=== PATIENT | male | born 1970 | race Caucasian/White ===

== ENCOUNTER 2021-05-25 02:30 | Observation (INO) | payer OTHER ==
[2021-05-25] MEDS ORDERED: NA CHLORIDE 0.9% 1,000 ML ONE (03:07)
[2021-05-25] MEDS ORDERED: IBUPROFEN 400 MG TAB ONE (03:19)
[2021-05-25] MEDS ORDERED: ASPIRIN EC 81 MG TAB PO ONE (03:19)
[2021-05-25] MEDS ORDERED: CEFTRIAXONE 1000 MG/VIAL ONE (03:19)
[2021-05-25] MEDS ORDERED: AZITHROMYCIN 250 MG TAB ONE (03:20)
[2021-05-25 03:43] LABS: Absolute Lymphocytes (CBC) 0.5 K/uL (0.7-4.9); Basophils % 0.3 % (0-1.3); Lymphocytes % 6.1 % (15.3-44.8); MPV 7.1 fL (7.6-11.3); RBC Red Blood Cell Count 4.74 M/uL (4.33-5.43)
[2021-05-25] MEDS ORDERED: FAMOTIDINE 20 MG/2 ML VIAL IV ONE (03:54)
[2021-05-25 04:07] LABS: Protime INR 1.11
[2021-05-25 04:15] LABS: SARS-COV-2 RT PCR NEGATIVE (NEGATIVE)
[2021-05-25 04:31] LABS: Urine Blood Negative (Negative); Urine Glucose Negative (Negative); Urine Protein Negative (Negative); Urine Specific Gravity 1.015 (1.005-1.030); Urine pH 6.5 (5.0-7.0)
--- NOTE | 2021-05-25 04:40 | ER ---
Nurse's Notes [facility] Name: Payam Waterman Age: 51 yrs Sex: Male : 1970 Arrival Date: 05/25/2021 Time: 02:33 Bed 8 Private MD: Diagnosis: Fever, unspecified;Other malaise and fatigue;Dyspnea;Obesity, unspecified;Chest pain, unspecified;Bandemia;Pneumonia, unspecified organism-BILATERAL PNEUMONIA Presentation: 05/25 02:33 Chief complaint: Patient states: Pt woke up at 2300 in resp distress. Pt states he has wg been having chills, sweats and body aches all over. EMS stated temp was 101.3 and was given 1 gram of tylenol in the field. Pt was 94% in the field and diaphoretic. Coronavirus screen: Vaccine status: Patient reports being unvaccinated. Client presents with at least one sign or symptom that may indicate coronavirus-19. Standard/surgical mask placed on the client. Ebola Screen: Patient negative for fever greater than or equal to 101.5 degrees Fahrenheit, and additional compatible Ebola Virus Disease symptoms Patient denies exposure to infectious person. Patient denies travel to an Ebola-affected area in the 21 days before illness onset. Initial Sepsis Screen: Does the patient meet any 2 criteria? No. Patient's initial sepsis screen is negative. Does the patient have a suspected source of infection? No. Patient's initial sepsis screen is negative. Risk Assessment: Do you want to hurt yourself or someone else? Patient reports no desire to harm self or others. Onset of symptoms was May 24, 2021 at 23:00. Care prior to arrival: Medication(s) given: Tylenol, 1000 mg. 02:33 Method Of Arrival: EMS: [facility] wg :33 Acuity: RAYSA 3 wg Triage Assessment: 02:38 General: Appears uncomfortable, obese, well nourished, Behavior is cooperative, wg appropriate for age, anxious. Pain: Complains of pain in Generalized body ache. Historical: - Allergies: 02:38 No Known Allergies; wg - Home Meds: 02:38 omeprazole Oral [Active]; Ambien Oral [Active]; Voltaren Oral [Active]; wg - Immunization history:: Adult Immunizations up to date. - Social history:: Smoking status: . - Family history:: not pertinent. Screenin:42 Abuse screen: Denies threats or abuse. Nutritional screening: No deficits noted. cw2 Tuberculosis screening: No symptoms or risk factors identified. Fall Risk None identified. Vital Signs: 02:33 BP 142 / 98; Pulse 126; Resp 26; Temp 100.4; Pulse Ox 95% on R/A; Weight 163.75 kg; wg Height 5 ft. 11 in. (180.34 cm); Pain 5/10; 03:00 BP 132 / 88; Pulse 93; Resp 22; Temp 99.0; Pulse Ox 99% on R/A; Pain 0/10; cw2 02:33 Body Mass Index 50.35 (163.75 kg, 180.34 cm) ED Course: 02:33 Patient arrived in ED. mw2 02:37 Scot Juan MD is Attending Physician. imer 02:38 Triage completed. wg 02:38 Arm band placed on right wrist. wg 02:39 Andrez Dennis, [place] is Primary Nurse. cw2 02:40 Arm band placed on right wrist. Patient placed in an exam room, on a stretcher, on cw2 air sampling and monitoring, on pulse oximetry. 02:40 EKG done per protocol. Performed by ED Staff. Shown to ED physician. cw2 02:41 No provider procedures requiring assistance completed. Inserted saline lock: 20 gauge cw2 in right antecubital area, using aseptic technique. Blood collected. 02:41 First set of blood cultures drawn by ct, EKG done, COVID swab sent to lab. cw2 03:09 Flu Sent. cw2 03:16 Antipyretics given from triage as ordered by an ER provider. cw2 03:41 XRAY Chest (1 view) In Process Unspecified. EDMS 04:38 Karan Harper MD is Hospitalizing Provider. imer 04:58 US Extremity Venous W Compression Faraz In Process Unspecified. EDMS 06:30 CT Chest For PE Angio Sent. ch4 Administered Medications: 02:52 Drug: NS 0.9% 1000 ml Route: IV; Rate: 1 bolus; Site: right antecubital; cw2 03:08 Drug: Rocephin (cefTRIAXone) 1 grams Route: IV; Rate: per protocol; Site: right cw2 antecubital; 03:08 Drug: Pepcid (famotidine) 40 mg Route: IVP; Site: right antecubital; cw2 03:08 Drug: Aspirin Chewable Tablet 324 mg Route: PO; cw2 03:08 Drug: Motrin (ibuprofen) 800 mg Route: PO; cw2 03:09 Drug: Zithromax (azithromycin) 500 mg Route: PO; cw2 05:42 Drug: Lovenox (enoxaparin) 100 mg Route: Sub-Q; Site: left lower abdomen; cw2 Outcome: 04:17 Condition: good [facility] 04:40 Decision to Hospitalize by Provider. [facility] 17:49 Patient left the ED. Signatures: Dispatcher [employer] EDMS Scot Juan MD MD cha Smirch, Shelby, RN RN Chadd Espinoza [facility] Marquita Arizmendi, [place] JACINTO [facility] Chilango Farris RN Andrez Dennis RN RN cw2 Corrections: (The following items were deleted from the chart) 03:15 02:52 CORONAVIRUS+MR.LAB.LOBITO drawn and sent. [address]
--- NOTE | 2021-05-25 04:40 | EDPHYS ---
Physician Documentation [facility] Name: Payam Waterman Age: 51 yrs Sex: Male : 1970 Arrival Date: 05/25/2021 Time: 02:33 Bed 8 Private MD: ED Physician Scot Juan HPI: 05/25 02:51 This 51 yrs old Male presents to ER via EMS with complaints of sob , fever imer and pain all over. 02:51 The patient has shortness of breath at rest, with light activity. Onset: The imer symptoms/episode began/occurred this morning. Duration: The symptoms are continuous, and are steadily getting worse. The patient's shortness of breath is aggravated by coughing, is alleviated by nothing. The patient or guardian reports airway noise, cough, difficulty breathing, flu symptoms, arthralgias, low-grade fever, myalgias. Onset: The symptoms/episode began/occurred 1 day(s) ago. Modifying factors: The symptoms are alleviated by nothing. the symptoms are aggravated by nothing. Associated signs and symptoms: The patient has no apparent associated signs or symptoms. Severity of symptoms: At their worst the symptoms were mild moderate in the emergency department the symptoms are unchanged. Associated signs and symptoms: Pertinent positives: chest pain, fever, rhinorrhea, sore throat. Historical: - Allergies: 02:38 No Known Allergies; wg - Home Meds: 02:38 omeprazole Oral [Active]; Ambien Oral [Active]; Voltaren Oral [Active]; wg - Immunization history:: Adult Immunizations up to date. - Social history:: Smoking status: . - Family history:: not pertinent. ROS: 02:51 Eyes: Negative for injury, pain, redness, and discharge, ENT: Negative for injury, imer pain, and discharge, Neck: Negative for injury, pain, and swelling, Abdomen/GI: Negative for abdominal pain, nausea, vomiting, diarrhea, and constipation, Back: Negative for injury and pain, : Negative for injury, bleeding, discharge, and swelling, Skin: Negative for injury, rash, and discoloration, Neuro: Negative for headache, weakness, numbness, tingling, and seizure, Psych: Negative for depression, anxiety, suicide ideation, homicidal ideation, and hallucinations, Allergy/Immunology: Negative for hives, rash, and allergies, Endocrine: Negative for neck swelling, polydipsia, polyuria, polyphagia, and marked weight changes, Hematologic/Lymphatic: Negative for swollen nodes, abnormal bleeding, and unusual bruising. 02:51 Constitutional: Positive for fever. 02:51 Cardiovascular: Positive for chest pain, palpitations. 02:51 Respiratory: Positive for cough, shortness of breath, at rest. 02:51 MS/extremity: Positive for decreased range of motion, pain, of the right hand, left hand, right foot and left foot. Exam: 02:51 Constitutional: This is a well developed, well nourished patient who is awake, alert, imer and in no acute distress. Head/Face: Normocephalic, atraumatic. Eyes: Pupils equal round and reactive to light, extra-ocular motions intact. Lids and lashes normal. Conjunctiva and sclera are non-icteric and not injected. Cornea within normal limits. Periorbital areas with no swelling, redness, or edema. ENT: Nares patent. No nasal discharge, no septal abnormalities noted. Tympanic membranes are normal and external auditory canals are clear. Oropharynx with no redness, swelling, or masses, exudates, or evidence of obstruction, uvula midline. Mucous membranes moist. Neck: Trachea midline, no thyromegaly or masses palpated, and no cervical lymphadenopathy. Supple, full range of motion without nuchal rigidity, or vertebral point tenderness. No Meningismus. Chest/axilla: Normal chest wall appearance and motion. Nontender with no deformity. No lesions are appreciated. Cardiovascular: Regular rate and rhythm with a normal S1 and S2. No gallops, murmurs, or rubs. Normal PMI, no JVD. No pulse deficits. Respiratory: Lungs have equal breath sounds bilaterally, clear to auscultation and percussion. No rales, rhonchi or wheezes noted. No increased work of breathing, no retractions or nasal flaring. Abdomen/GI: Soft, non-tender, with normal bowel sounds. No distension or tympany. No guarding or rebound. No evidence of tenderness throughout. Back: No spinal tenderness. No costovertebral tenderness. Full range of motion. Skin: Warm, dry with normal turgor. Normal color with no rashes, no lesions, and no evidence of cellulitis. MS/ Extremity: Pulses equal, no cyanosis. Neurovascular intact. Full, normal range of motion. Neuro: Awake and alert, GCS 15, oriented to person, place, time, and situation. Cranial nerves II-XII grossly intact. Motor strength 5/5 in all extremities. Sensory grossly intact. Cerebellar exam normal. Normal gait. Psych: Awake, alert, with orientation to person, place and time. Behavior, mood, and affect are within normal limits. Vital Signs: 02:33 BP 142 / 98; Pulse 126; Resp 26; Temp 100.4; Pulse Ox 95% on R/A; Weight 163.75 kg; wg Height 5 ft. 11 in. (180.34 cm); Pain 5/10; 03:00 BP 132 / 88; Pulse 93; Resp 22; Temp 99.0; Pulse Ox 99% on R/A; Pain 0/10; cw2 02:33 Body Mass Index 50.35 (163.75 kg, 180.34 cm) wg MDM: 02:39 Patient medically screened. imer 02:55 Differential diagnosis: Anemia Anxiety Reaction Bronchitis CHF exacerbation, imer bronchitis, flu, URI, pneumonia. Antibiotic administration: Rocephin and Zithromax given. The patient's Wells Deep Vein Thrombosis Score was calculated as follows: Heart Rate >100 BPM (1.5 Pts) Total Score: 0-2 Pts- Low Risk. The patient's pulmonary embolism risk score was calculated as follows: the patients heart rate is greater than 100 beats per minute (1.5 Pts) Total Score: 0-2 points. This patient was found to be at low risk for a pulmonary embolism by using the Well's assessment criteria. Immunization status: Influenza vaccine: Data reviewed: vital signs, nurses notes, lab test result(s), EKG, radiologic studies, plain films. Data interpreted: property assessment monitor: rate is 126 beats/min, rhythm is regular, Pulse oximetry: on room air is 95 %. Test interpretation: by ED physician or midlevel provider: ECG, plain radiologic studies. Counseling: I had a detailed discussion with the patient and/or guardian regarding: the historical points, exam findings, and any diagnostic results supporting the discharge/admit diagnosis, lab results, radiology results. 05/25 02:41 Order name: BMP; Complete Time: 05:17 05/25 02:41 Order name: Blood Culture Adult (2) 05/25 02:41 Order name: CBC with Diff; Complete Time: 04:55 05/25 02:41 Order name: CPK; Complete Time: 05:17 05/25 02:41 Order name: Ckmb; Complete Time: 05:17 05/25 02:41 Order name: D-Dimer; Complete Time: 04:14 05/25 02:41 Order name: Hepatic Function; Complete Time: 05:17 05/25 02:41 Order name: Lipase; Complete Time: 05:17 05/25 02:41 Order name: Magnesium; Complete Time: 05:17 05/25 02:41 Order name: NT PRO-BNP; Complete Time: 05:17 05/25 02:41 Order name: PT-INR; Complete Time: 04:14 05/25 02:41 Order name: Ptt, Activated; Complete Time: 04:14 05/25 02:41 Order name: Troponin (emerg Dept Use Only); Complete Time: 05:17 05/25 02:51 Order name: Flu [facility] 05/25 02:48 Order name: XRAY Chest (1 view) [facility] 05/25 03:46 Order name: Manual Differential; Complete Time: 04:55 [facility] 05/25 04:11 Order name: US Extremity Venous W Compression Faraz [facility] 05/25 04:11 Order name: CT Chest For PE Angio [facility] 05/25 04:15 Order name: COVID-19/FLU A+B; Complete Time: 04:38 [facility] 05/25 04:31 Order name: Urine Dipstick-Ancillary; Complete Time: 04:38 [facility] 05/25 11:18 Order name: CT [facility] 05/25 15:44 Order name: Urine Dipstick-Ancillary [facility] 05/25 16:50 Order name: Troponin I [facility] 05/25 02:41 Order name: EKG; Complete Time: 02:41 05/25 02:41 Order name: Cardiac monitoring; Complete Time: 06:30 05/25 02:41 Order name: EKG - Nurse/Tech; Complete Time: 06:30 05/25 02:41 Order name: IV Saline Lock; Complete Time: 06:30 05/25 02:41 Order name: Labs collected and sent; Complete Time: 06:30 05/25 02:41 Order name: O2 Per Protocol; Complete Time: 06:30 wg 05/25 02:41 Order name: O2 Sat Monitoring; Complete Time: 06:30 wg 05/25 02:42 Order name: Urine Dipstick-Ancillary (obtain specimen); Complete Time: 06:30 wg Administered Medications: 02:52 Drug: NS 0.9% 1000 ml Route: IV; Rate: 1 bolus; Site: right antecubital; cw2 03:08 Drug: Rocephin (cefTRIAXone) 1 grams Route: IV; Rate: per protocol; Site: right cw2 antecubital; 03:08 Drug: Pepcid (famotidine) 40 mg Route: IVP; Site: right antecubital; cw2 03:08 Drug: Aspirin Chewable Tablet 324 mg Route: PO; cw2 03:08 Drug: Motrin (ibuprofen) 800 mg Route: PO; cw2 03:09 Drug: Zithromax (azithromycin) 500 mg Route: PO; cw2 05:42 Drug: Lovenox (enoxaparin) 100 mg Route: Sub-Q; Site: left lower abdomen; cw2 Disposition Summary: 05/25/21 04:40 Hospitalization Ordered Hospitalization Status: Observation imer Provider: Karan Harper cha Condition: Stable imer Problem: new imer Symptoms: have improved imer Bed/Room Type: Standard [facility] Location: [facility] ER HOLD(05/25/21 12:20) Room Assignment: ERHOLD-(05/25/21 12:20) ss Diagnosis - Fever, unspecified imer - Other malaise and fatigue imer - Dyspnea imer - Obesity, unspecified imer - Chest pain, unspecified imer - Bandemia imer - Pneumonia, unspecified organism - BILATERAL PNEUMONIA imer Forms: - Medication Reconciliation Form imer - SBAR form imer Signatures: Dispatcher [employer] EDMS Scot Juan MD MD cha Smirch, Shelby, RN RN ss Chilango Farris RN Andrez Dennis RN RN cw2 Corrections: (The following items were deleted from the chart) 03:15 02:51 Influenza Screen (A ordered. EDMS EDMS 03:15 02:51 CORONAVIRUS+MR.LAB.BRZ ordered. EDMS EDMS 12:20 04:40 Telemetry/MedSurg (observation) imer ss 12:20 04:40 imer ss
[2021-05-25] MEDS ORDERED: ENOXAPARIN 100 MG/ML SYR SQ ONE (04:45)
[2021-05-25 04:54] LABS: Blood Morphology Comment NOT SEEN (NOT SEEN); Platelet Estimate ADEQ
[2021-05-25 05:12] LABS: ALT/SGPT 40 U/L (12-78); Albumin 3.6 g/dL (3.4-5.0); Alkaline Phosphatase 113 U/L (45-117); BUN Blood Urea Nitrogen 20 mg/dL (7-18); Bicarbonate 27 mmol/L (21-32); Bilirubin Direct < 0.1 mg/dL (0-0.2); Bilirubin Total 0.4 mg/dL (0.2-1.0); Creatine Phosphokinase 102 U/L (39-308); Glucose Level 145 mg/dL (74-106); Lipase 86 U/L (73-393); NT PRO-BNP 176 pg/mL (<125); Protein, Total 6.6 g/dL (6.4-8.2); Sodium Level 141 mmol/L (136-145); Troponin (Emerg Dept Use Only) < 0.02 ng/mL (0.0-0.045)
[2021-05-25 05:13] LABS: AST/SGOT 33 U/L (15-37); CKMB Creatine Kinase MB < 1.0 ng/mL (1.0-3.6); Potassium 4.5 mmol/L (3.5-5.1)
--- NOTE | 2021-05-25 05:42 | P.HP ---
Certification for Inpatient Patient admitted to: Observation With expected LOS: <2 Midnights Patient will require the following post-hospital care: None Practitioner: I am a practitioner with admitting privileges, knowledge of patient current condition, hospital course, and medical plan of care. Services: Services provided to patient in accordance with Admission requirements found in Title 42 Section 412.3 of the Code of Federal Regulations <Mariano Juan - Last Filed: 05/25/21 05:36> Patient History Date of Service: 05/25/21 Reason for admission: fever, dyspnea History of Present Illness: Mr. Waterman is a 51 yo obese M who presents with one day of fever and SOB. Tonight at 11pm he says he began to have chills and malaise and could not get warm. Then he had severe dyspnea, MOORE. He was scared because he lives by himself so he called EMS. Arrived wiht BP 142/98, pulse 126, RR 26, T 100.4. At bedside, he is resting on CPAP and reports feeling better. Denies cough, sore throat, N/V/D. Ddimer 9684. Glu 145. CTPE pending, venous US pending. - Past Medical/Surgical History -: arthritis -: appy - Family History Mother -: Hypertension Father -: Cancer - Social History Smoking Status: Never smoker Alcohol use: Yes CD- Drugs: No Caffeine use: Yes Place of Residence: Home <Mariano Juan - Last Filed: 05/25/21 05:36> Date of Service: 05/25/21 <Kevin Bradley - Last Filed: 06/04/21 12:46> Review of Systems 10-point ROS is otherwise unremarkable General: Fever, Chills, Malaise Respiratory: Shortness of Breath, SOB with Excertion <Mariano Juan - Last Filed: 05/25/21 05:36> Physical Examination - Physical Exam General: Alert, In no apparent distress HEENT: Atraumatic, PERRLA, Mucous membr. moist/pink, EOMI, Sclerae nonicteric Neck: Supple, 2+ carotid pulse no bruit, No LAD, Without JVD or thyroid abnormality Respiratory: Clear to auscultation bilaterally, Normal air movement Cardiovascular: Regular rate/rhythm, Normal S1 S2 Gastrointestinal: Normal bowel sounds, No tenderness Musculoskeletal: No tenderness Integumentary: No rashes Neurological: Normal speech, Normal strength at 5/5 x4 extr, Normal tone, Normal affect Lymphatics: No axilla or inguinal lymphadenopathy - Studies Laboratory Data (last 24 hrs) 05/25/21 04:30: Sodium 141, Potassium 4.5, BUN 20 H, Creatinine 0.97, Glucose 145 H, Magnesium 2.0, Total Bilirubin 0.4, AST 33, ALT 40, Alkaline Phosphatase 113, Lipase 86 05/25/21 03:22: PT 12.8 H, INR 1.11, APTT 26.3 05/25/21 03:22: WBC 8.10, Hgb 14.5, Hct 42.0, Plt Count 250 <Mariano Juan - Last Filed: 05/25/21 05:36> Assessment and Plan - Problems (Diagnosis) (1) Dyspnea Status: Acute Qualifiers: Dyspnea type: unspecified Qualified Code(s): R06.00 - Dyspnea, unspecified (2) Fever Status: Acute Qualifiers: Fever type: unspecified Qualified Code(s): R50.9 - Fever, unspecified - Plan CTPE pending, venous US of lower extremities pending given full dose lovenox in ED continue IV antibiotics, IVF hydration A1c pending, sliding scale insulin and accuchecks monitor BP, hydralazine PRN for spikes reconcile and continue home medications Discharge Plan: Home Plan to discharge in: 24 Hours - Advance Directives Does patient have a Living Will: No Does patient have a Durable POA for Healthcare: No - Code Status/Comfort Care Code Status Assessed: Yes (full code ) Critical Care: No Time Spent Managing Pts Care (In Minutes): 70 <Mariano Juan - Last Filed: 05/25/21 05:36> Date of Service: 05/25/21 Agree with plan of care as mentioned above. Patient is clinically doing well. Will monitor closely and possible discharge. <Kevin Bradley - Last Filed: 06/04/21 12:46>
--- NOTE | 2021-05-25 08:06 | RAD REPORT ---
EXAM DESCRIPTION: Jaki Single View05/25/2021 3:41 am CLINICAL HISTORY: Cough COMPARISON: none FINDINGS: The lungs appear clear of acute infiltrate. The heart is mildly enlarged. Upper lobe vess els are prominent indicative of pulmonary venous hypertension IMPRESSION: No acute abnormalities displayed
--- NOTE | 2021-05-25 08:10 | RAD REPORT ---
EXAM DESCRIPTION: USExtrem Venous W Compress Bil05/25/2021 4:58 am CLINICAL HISTORY: Leg pain COMPARISON: none FINDINGS: The common femoral, superficial femoral, popliteal and posterior tibial veins bilaterally are compressible and demonstrate augmentation. Doppler demonstrates good flow. IMPRESSION: No evidence of deep venous thrombosis involving either lower extremity.
[2021-05-25 10:15] VITALS: BMI 50.2
--- NOTE | 2021-05-25 10:22 | EKG ---
Test Date: 2021-05-25 Test Time: 02:31:09 Manager Gyn: LENKA MEASUREMENT RESULTS: Intervals: Rate: 117 NH: 124 QRSD: 100 QT: 312 QTc: 435 Elnora: P: 40 NH: 124 QRS: -9 T: 33 INTERPRETIVE STATEMENTS: Sinus tachycardia Possible Left atrial enlargement Incomplete right bundle branch block Borderline ECG No previous ECG available for comparison Electronically Signed On 05-25-21 10:21:43 CDT by Samy Strange
--- NOTE | 2021-05-25 11:18 | RAD REPORT ---
EXAM DESCRIPTION: CT - Chest For Pe Angio - 05/25/2021 6:51 am CLINICAL HISTORY: The patient is 51 years old and is Male; Chest pain;Dyspnea;PE TECHNIQUE: Axial computed tomographic angiography images of the chest with intravenous contrast. S agittal and coronal reformatted images were created and reviewed. This CT exam was performed using one or more of the following dose reduction techniques: automated exposure control, adjustment of t he mA and/or kV according to patient size, and/or use of iterative reconstruction technique. MIP re constructed images were created and reviewed. COMPARISON: No relevant prior studies available. FINDINGS: Pulmonary arteries: Unremarkable. No pulmonary embolism. Aorta: No acute findings. No thoracic aortic aneurysm. Lungs: There are a few scattered mild groundglass opacities bilaterally, most prominently within the left apex. Pleural space: Unremarkable. No significant effusion. No pneumothorax. Heart: Unremarkable. No cardiomegaly. No significant pericardial effusion. No evidence of RV dysfunction. Bones/joints: No acute fracture. No dislocation. Soft tissues: Unremarkable. Lymph nodes: Unremarkable. No enlarged lymph nodes. IMPRESSION: 1. No evidence of pulmonary embolism. 2. There are a few scattered mild groundglass opacities bilaterally, most prominently within the le ft apex. Findings are nonspecific but can be seen with pulmonary edema as well as infectious and in flammatory etiologies. Electronically signed by: Juan Portillo MD 05/25/2021 6:19 AM CDT Due to temporary technical issues with the PACS/Fluency reporting system, reports are being signed by the in house radiologist without review as a courtesy to ensure prompt reporting. The interpreting r adiologist is fully responsible for the content of the report.
[2021-05-25 15:44] LABS: Urine Blood 3+ (Negative); Urine Glucose Negative (Negative); Urine Protein 1+ (Negative); Urine Specific Gravity 1.025 (1.005-1.030)
[2021-05-25 15:50] VITALS: BP 102/65
[2021-05-25 19:03] VITALS: TEMP 99; O2SAT 99
--- NOTE | 2021-06-04 12:46 | P.DS ---
Discharge Date: 05/25/21 Disposition: ROUTINE DISCHARGE Discharge Condition: GOOD Reason for Admission: fever, dyspnea Brief History of Present Illness: Mr. Waterman is a 51 yo obese M who presents with one day of fever and SOB. Tonight at 11pm he says he began to have chills and malaise and could not get warm. Then he had severe dyspnea, MOORE. He was scared because he lives by himself so he called EMS. Arrived wiht BP 142/98, pulse 126, RR 26, T 100.4. At bedside, he is resting on CPAP and reports feeling better. Denies cough, sore throat, N/V/D. Ddimer 9684. Glu 145. CTPE pending, venous US pending. Hospital Course: Patient's clinical symptoms are doing much better. Patient is breathing much more Stable. Patient denies any other symptoms. Continue with steroids and antibiotics. At this time, patient is stable for discharge. Vital Signs/Physical Exam: Temp Pulse Resp BP Pulse Ox 99.0 F 51 17 102/65 98 05/25/21 03:00 05/25/21 15:48 05/25/21 15:48 05/25/21 15:48 05/25/21 15:48 General: Alert, In no apparent distress, Oriented x3 Respiratory: Clear to auscultation bilaterally Laboratory Data at Discharge: WBC 8.10 K/uL (4.3-10.9) 05/25/21 03:22 Hgb 14.5 g/dL (13.6-17.9) 05/25/21 03:22 Hct 42.0 % (39.6-49.0) 05/25/21 03:22 Plt Count 250 K/uL (152-406) 05/25/21 03:22 PT 12.8 SECONDS (9.5-12.5) H 05/25/21 03:22 INR 1.11 05/25/21 03:22 APTT 26.3 SECONDS (24.3-36.9) 05/25/21 03:22 Sodium 141 mmol/L (136-145) 05/25/21 04:30 Potassium 4.5 mmol/L (3.5-5.1) 05/25/21 04:30 BUN 20 mg/dL (7-18) H 05/25/21 04:30 Creatinine 0.97 mg/dL (0.55-1.3) 05/25/21 04:30 Glucose 145 mg/dL (74-106) H 05/25/21 04:30 Magnesium 2.0 mg/dL (1.8-2.4) 05/25/21 04:30 Total Bilirubin 0.4 mg/dL (0.2-1.0) 05/25/21 04:30 AST 33 U/L (15-37) 05/25/21 04:30 ALT 40 U/L (12-78) 05/25/21 04:30 Alkaline Phosphatase 113 U/L (45-117) 05/25/21 04:30 Troponin I < 0.02 ng/mL (0.0-0.045) 05/25/21 15:37 Lipase 86 U/L (73-393) 05/25/21 04:30 Home Medications: Cefdinir [Omnicef] 300 mg PO BID #10 capsule 05/25/21 predniSONE [Deltasone] 20 mg PO DAILY #5 tab 05/25/21 New Medications: Cefdinir [Omnicef] 300 mg PO BID #10 capsule predniSONE [Deltasone] 20 mg PO DAILY #5 tab Physician Discharge Instructions: OK TO DC IV AND DC HOME FOLLOW-UP WITH PRIMARY CARE PROVIDER IN 1-2 WEEKS FOLLOW-UP WITH CARDIOLOGY IN 1-2 WEEKS RETURN TO THE ER IF symptoms worsen CALL or TEXT DR. COLE AT [phone] IF ANY QUESTIONS REGARDING HOSPITAL STAY. PLEASE CALL THE FLOOR AT [phone] ANY MEDICATION OR NURSING QUESTIONS. Diet: AHA Activity: Fall precautions Time spent managing pt's care (in minutes): 35
== END 2021-05-25 17:51 | disposition home or self-care (01) ==
LOC: ER 02:30 → ERHOLD 05:43
PROVIDERS: ADMIT Hospitalist; ATTEND Hospitalist
DX: R06.00 Dyspnea, unspecified (principal); R50.9 Fever, unspecified; R07.9 Chest pain, unspecified; R53.81 Other malaise; R53.83 Other fatigue; D72.825 Bandemia; M19.90 Unspecified osteoarthritis, unspecified site; E66.9 Obesity, unspecified; Z68.43 Body mass index [BMI] 50.0-59.9, adult; Z20.822 Contact with and (suspected) exposure to COVID-19; Z82.49 Family history of ischemic heart disease and other diseases of the circulatory system; Z80.9 Family history of malignant neoplasm, unspecified
CPT/HCPCS: 93005; 87040 ×2; 85025; 80048; 36415; 83735; 82550; 85610; 85379; 80076; 85730; 81003 ×2; 84484 ×2; 82553; 83690; 83880; 0240U; 71275; 71045; 93970; 96375; 96372; 96374; 99284; Q9967; J1650; J7030; G0378 ×2